=== PATIENT | female | born 1980 | race Caucasian/White ===

== ENCOUNTER → 2022-04-03 15:41 | Outpatient (CLI) | payer OTHER, SELFPAY ==
[2022-04-03 19:57] LABS: Urine N gonorrhoeae NOT DETECTED
[2022-04-03 21:32] LABS: Urine Chlamydia NOT DETECTED
== END ==
PROVIDERS: Visit Provider Obstetrics & Gynecology
DX: T83.9XXA Unspecified complication of genitourinary prosthetic device, implant and graft, initial encounter (principal); Z11.3 Encounter for screening for infections with a predominantly sexual mode of transmission
CPT/HCPCS: 87491; 87591

== ENCOUNTER → 2022-06-08 16:44 | Outpatient (CLI) | payer OTHER, SELFPAY | PROVIDERS: PCP Physician Assistant Medical; Visit Provider Specialist | DX: N76.0 Acute vaginitis (principal) | CPT/HCPCS: 87070; 87147; 87205 ==

== ENCOUNTER → 2022-07-09 12:02 | Outpatient (CLI) | payer OTHER, SELFPAY ==
[2022-07-09 13:01] LABS: Add Manual Diff / Slide Review NO; Basophils Absolute Auto 0 /uL (0-100); Basophils Percent Auto 0.2 % (0-2); Eosinophils Absolute Auto 100 /uL (0-450); Eosinophils Percent Auto 1.1 % (2-4); Hematocrit 38.4 % (36-46); Hemoglobin 13.3 g/dL (12.0-16.0); Lymphocytes Absolute Auto 2000 /uL (1100-4500); Lymphocytes Percent Auto 24.1 % (25-40); Mean Corpuscular HGB Conc 34.5 % (30-36); Mean Corpuscular Hemoglobin 32.2 PG (26-34); Mean Corpuscular Volume 93.4 fL (80-100); Monocytes Absolute Auto 700 /uL (0-900); Monocytes Percent Auto 8.4 % (3-14); Neutrophils Absolute Auto 5400 /uL (1500-7000); Neutrophils Percent Auto 66.2 % (50-75); Platelet Count 247 X10^3/uL (150-400); Red Blood Cell Count 4.12 X10^6/uL (4.0-5.2); Red Cell Distribution Width 13.3 % (11.6-14.8); White Blood Cell Count 8.1 X10^3/uL (4.5-11.0)
== END ==
PROVIDERS: PCP Physician Assistant Medical; Referring Provider Obstetrics & Gynecology; Visit Provider Obstetrics & Gynecology
DX: R50.9 Fever, unspecified (principal)
CPT/HCPCS: 36415; 85025

== ENCOUNTER → 2022-07-31 15:46 | Outpatient (CLI) | payer OTHER, SELFPAY ==
--- NOTE | 2022-07-31 15:47 | DI.US.S_ITS ---
PROCEDURE: US PELVIC COMPLETE INDICATIONS: ABNORMAL HEAVY BLEEDING TECHNIQUE: Real-time scanning was performed of the pelvic organs, with image documentation. Additional endovaginal scanning was necessary due to incomplete visualization of the adnexal and endometrial structures by transabdominal scanning. COMPARISON: [facility], US, US PELVIC COMPLETE, 09/23/2020, 14:57. FINDINGS: Uterus: Uterus is anteverted and normal in size at 8.9 x 5.2 x 4.0 cm. The myometrium is homogeneous. The endometrium measures 2.8 mm combined thickness. Trace endocervical fluid. Ovaries: The right ovary measures 3.3 x 2.0 x 0.8 cm and the left ovary measures 3.2 x 3.1 x 1.8 cm. Less than 12 subcentimeter follicular cysts bilaterally. No adnexal masses. Other: No pathologic free abdominal or pelvic fluid. IMPRESSION: 1. No source for menorrhagia identified. We strive to produce accurate, complete, and clear reports of imaging services. To assist us in improving patient care, this report was composed using standard report templates and voice recognition software. Therefore, it may contain abnormal punctuation, insertions and/or omissions. Occasional wrong-word or sound-alike substitutions may occur. Though we review the report and make efforts to correct it, we do recommend that the report be read carefully in proper context to recognize any text inaccuracies. Dictated by: Omer PEREZ Interpreted: Marianela Roy MD on 07/31/2022 at 16:28 Transcribed by: ROSAMARIA on 07/31/2022 at 16:30 Approved by: Marianela Roy M.D. on 07/31/2022 at 17:29
== END ==
PROVIDERS: PCP Physician Assistant Medical; Referring Provider Obstetrics & Gynecology; Visit Provider Obstetrics & Gynecology
DX: N93.9 Abnormal uterine and vaginal bleeding, unspecified (principal)
CPT/HCPCS: 76856